=== PATIENT | female | born 1975 | race Caucasian/White ===

== ENCOUNTER 2016-07-07 09:20 | Outpatient (CLI) ==
[2016-03-10 08:03] VITALS: BMI 47.6
[2016-07-07 11:17] LABS: ALBUMIN 4.1 g/dL (3.4-5.0); ALBUMIN/GLOBULIN RATIO 1.28; ANION GAP 15.3; BILIRUBIN,TOTAL 0.52 mg/dL (0.00-1.20); BUN/CREATININE RATIO 13.18; CALCIUM 9.5 mg/dL (8.2-10.2); CHOL/HDL RATIO 5.2 (4.5-5.5); CREATININE 0.91 mg/dL (0.60-1.30); POTASSIUM 4.3 mmol/L (3.5-5.10); TOTAL PROTEIN 7.3 g/dL (6.4-8.2)
--- NOTE | 2016-07-07 23:22 | MRI ---
EXAM: Cervical spine MRI without contrast. HISTORY: Cervical spinal stenosis. COMPARISON: Cervical spine MRI 11/04/[address] scan 04/29/2015. TECHNIQUE: Multiplanar, multisequence MR images were acquired cervical spine without contrast. The study is degraded by patient motion and lack of [id number] which limits interpretation. FINDINGS: The craniocervical junction is unremarkable. The cervical cord is without syrinx. There is a lack of spatial resolution which limits evaluation for abnormal cord signal. However, as visu alized, no abnormal T2 hyperintensity is identified in the cervical cord. There is mild mid-cervica l dextroscoliosis and straightening of the usual cervical lordosis. The patient is status post ACDF at C5-6. Metallic artifact is present consistent with anterior screw and plate fixation. There is 1 mm retrolisthesis of C4 on C5. There is osteophytosis with disc space narrowing and mild degener ative endplate changes at C4-5 and osteophytosis with a minor end plate irregularity at C6-7 and C7- T1. Canal diameter is developmentally narrow. There are no paravertebral masses. Visualized lung apices are clear. C2-3: The intervertebral disc is normal. There is minor left facet hypertrophy without foraminal s tenosis. C3-4: There is a small posterior disc bulge and bilateral uncovertebral hypertrophy that causes mil d spinal stenosis. AP diameter of the thecal sac is 9.4 mm. C4-5: There is a diffuse disc osteophyte complex with a small poorly visualized central disc protru eloy that mildly indents the cervical cord. Ligamentum flavum hypertrophy is present and there is m oderate spinal stenosis and probable mild bilateral foraminal stenosis. AP diameter of the thecal s ac is about 6 mm. C5-6: There are postoperative ACDF changes without central canal stenosis or foraminal stenosis. C6-7: There is a diffuse disc bulge with a probable small central disc protrusion, bilateral uncove rtebral hypertrophy and mild ligamentum flavum hypertrophy. This causes mild spinal stenosis and mi nor bilateral foraminal stenosis. AP diameter of the thecal sac is 8.7 mm. C7-T1: There is a mild disc bulge with a probable small superimposed central disc protrusion that i s not well seen due to lack of resolution. Bilateral uncovertebral hypertrophy is present and there is no central canal stenosis. There is left hypertrophic facet arthropathy and probable mild left foraminal stenosis. IMPRESSION: 1. Mild cervical degenerative spondylosis which causes mild C3-4 and C6-7 and moderate C4-5 spinal stenosis. 2. Status post ACDF C5-6 without central canal stenosis. 3. Probable small central disc protrusions C6-7 and C7-T1. Cervical CT myelography may be helpful to further define the anatomy
== END 2016-07-07 09:21 | disposition home or self-care (01) ==
LOC: RAD 09:20
PROVIDERS: ATTEND Physician Assistant
DX: E11.42 Type 2 diabetes mellitus with diabetic polyneuropathy (principal); E78.2 Mixed hyperlipidemia; G62.9 Polyneuropathy, unspecified; I10 Essential (primary) hypertension; M48.02 Spinal stenosis, cervical region
CPT/HCPCS: 36415; 80053; 80061; 82043; 83036